=== PATIENT | female | born 1955 | race Caucasian/White ===

== ENCOUNTER → 2017-01-10 | Outpatient (CLI) | payer OTHER | LOC: FIMAGING 14:38 | PROVIDERS: ATTEND Family Medicine | DX: Z12.31 Encounter for screening mammogram for malignant neoplasm of breast (principal) | CPT/HCPCS: G0202 ==

== ENCOUNTER 2017-07-07 11:00 | Day surgery (SDC) | payer OTHER ==
[2017-07-07] MEDS ORDERED: LR 1,000 ML IV ONE (11:27)
[2017-07-07] MEDS ORDERED: PROPOFOL/EMULSION 500 MG/50 ML BOTTLE IV ONE (12:30)
[2017-07-07] MEDS ORDERED: LIDOCAINE 2% 5 ML SDV ONE (12:32)
--- NOTE | 2017-07-07 12:45 | PDGENHP ---
History & Physical Chief Complaint: colonic polyps History of Present Illness: 62 year old with 3 polyps on last colonoscopy presents for surveillance colonoscopy. Pertinent Past, Social, Family History: PMHx: HTN. SoHx: No alc, cigs Relevant Physical Exam: HEENT: anicteric. Cv: RRR +s1s2. Lungs: CTAB. Abd: soft, nt, + bs Cardiorespiratory Assessment: ASA 2
[2017-07-07] MEDS ORDERED: INDOMETHACIN 50 MG SUPP PR PRN (12:46)
--- NOTE | 2017-07-07 12:50 | PDANEPAE ---
ANE Past Medical History - Cardiovascular History Hx Hypertension: No Hx Arrhythmias: Yes Hx Chest Pain: No Hx Coronary Artery / Peripheral Vascular Disease: No Hx CHF / Valvular Disease: No Hx Palpitations: No Cardiovascular History Comment: MILD UNK ARRHYTHMIA - BENIGN - Pulmonary History Hx COPD: No Hx Asthma/Reactive Airway Disease: No Hx Recent Upper Respiratory Infection: No Hx Oxygen in Use at Home: No Hx Sleep Apnea: No Sleep Apnea Screening Result - Last Documented: Negative - Neurologic History Hx Cerebrovascular Accident: No Hx Seizures: Yes Hx Dementia: No Neurologic History Comment: EPILEPSY - SEIZURES APPROX ONCE PER MONTH DURING DEEP SLEEP. LAST SEIZURE 06/11/17 - Endocrine History Hx Diabetes: No - Renal History Hx Renal Disorders: No - Liver History Hx Hepatic Disorders: No - Neurological & Psychiatric Hx Hx Neurological and Psychiatric Disorders: Yes Neurological / Psychiatric History Comment: ANXIETY/DEPRESSION - Cancer History Hx Cancer: No - Congenital Disorder History Hx Congenital Disorders: No - GI History Hx Gastrointestinal Disorders: No - Other Health History Other Health History: NEG - Chronic Pain History Chronic Pain: No - Surgical History Prior Surgeries: COLONOSCOPIES. VAGAL NERVE STIMULATOR -PLACED AND REMOVED. BREAST LUMP L BREAST. GANGLION L FOOT ANE Review of Systems Review of systems is: negative Review of Systems: - Exercise capacity METS (RN): 4 METS ANE Patient History - Allergies Allergies/Adverse Reactions: ampicillin [Ampicillin] Allergy (Verified 06/19/12 16:27) Rash - Home Medications Home medications: home medication list seen and reviewed Home Medications: Divalproex [Depakote 250 MG (RX)] 750 mg PO BID 10/16/12 [Last Taken 07/07/17] FLUoxetine [Prozac] 40 mg PO DAILY 10/16/12 [Last Taken 07/06/17] Ibuprofen [Motrin 200 mg (OTC)] 400 - 600 mg PO DAILY PRN 10/16/12 [Last Taken 1 Week Ago ~06/30/17] LORazepam [Ativan 0.5 mg (RX)] 0.5 mg PO HS PRN 10/16/12 [Last Taken 1 Week Ago ~06/30/17] metFORMIN HCL [Glucophage 500 mg (RX)] 10/16/12 [Last Taken 07/05/17] Aspirin 81mg (*) 06/16/17 [Last Taken 1 Week Ago ~06/30/17] Herbals/Supplements -Info Only 06/16/17 [Last Taken 1 Week Ago ~06/30/17] Risperdal 06/16/17 [Last Taken 07/06/17] - NPO status NPO Since - Liquids (Date): 07/07/17 NPO Since - Liquids (Time): 07:00 NPO Since - Solids (Date): 07/06/17 NPO Since - Solids (Time): 20:00 - Smoking Hx Smoking Status: Never smoked - Family Anes Hx Family Hx Anesthesia Complications: NEG ANE Labs/Vital Signs - Vital Signs Blood Pressure: 110/67 Heart Rate: 99 Respiratory Rate: 18 O2 Sat (%): 92 Height: 157.48 cm Weight: 82.1 kg ANE Physical Exam - Airway Neck exam: FROM Mallampati Score: Class 2 Mouth exam: normal dental/mouth exam - Pulmonary Pulmonary: no respiratory distress - Cardiovascular Cardiovascular: regular rate and rhythym - ASA Status ASA Status: III ANE Anesthesia Plan Anesthesia Plan: GA with mask
[2017-07-07] MEDS ORDERED: fentaNYL 100 MCG/2 ML INJ IVP PRN (12:53)
[2017-07-07] MEDS ORDERED: ONDANSETRON 4 MG/2 ML VIAL IVP PRN (12:53)
[2017-07-07] MEDS ORDERED: ALBUTEROL 3 ML DEYVIAL IH PRN (12:53)
[2017-07-07] MEDS ORDERED: LR 500 ML IV PRN (12:53)
[2017-07-07] MEDS ORDERED: NALOXONE HCL 0.4 MG/ML INJ IVP PRN (12:53)
[2017-07-07] MEDS ORDERED: ACETAMINOPHEN 500 MG TAB PO PRN (12:53)
--- NOTE | 2017-07-07 12:54 | POSTANESTH ---
Post Anesthetic Evaluation Cardiovascular Status: Normal, Stable Respiratory Status: Normal, Stable Level of Consciousness/Mental Status: Can Participate in Eval Pain Control: Adequate, Prn Tx Ordered Nausea/Vomiting Control: Adequate, Prn Tx Ordered Complications Possibly Related to Anesthesia: None Noted
[2017-07-07] MEDS ORDERED: NS 500 ML IV SCH (13:00)
--- NOTE | 2017-07-07 13:32 | GIREPORT ---
[facility] - Endoscopy Department Patient Name: Mary Preston Procedure Date: 07/07/2017 11:18 AM Patient Type: Outpatient Attending MD/ ER Physician: Leobardo Rehman MD Procedure: Colonoscopy Indications: High risk colon cancer surveillance: Personal history of colonic polyps Patient Profile: 62 year old female with a history of polyps presents for surveillance colonoscopy. Providers: Leobardo Rehman MD Medicines: Monitored Anesthesia Care Complications: No immediate complications. Estimated blood loss: Minimal. Description of Procedure: After obtaining informed consent, the scope was passed under direct vis ion. Throughout the procedure, the patient's blood pressure, pulse, and oxyg en saturations were monitored continuously. The Colonoscope with irrigatio n channel was introduced through the anus and advanced to the cecum, identified by appendiceal orifice and ileocecal valve. The colonoscopy was performed without difficulty. The patient tolerated the procedure well. The quality of the bowel preparation was good. The ileocecal valve, appendi ceal orifice, and rectum were photographed. Findings: The perianal and digital rectal examinations were normal. Pertinent negatives include no palpable rectal lesions. A 3 mm polyp was found in the cecum. The polyp was sessile. The polyp w as removed with a cold biopsy forceps. Resection and retrieval were comple te. Estimated Blood Loss: Estimated blood loss was minimal. Post Op Diagnosis: - One 3 mm polyp in the cecum, removed with a cold biopsy forceps. Rese cted and retrieved. Recommendation: - Discharge patient to home (with escort). - Resume previous diet. - Continue present medications. - Repeat colonoscopy in 5 years for surveillance. - Await pathology results. Attending Participation: I personally performed the entire procedure. Leobardo Rehman MD Leobardo Rehman MD 07/07/2017 1:31:51 PM This report has been signed electronicallyeLobardo Rehman MD Number of Addenda: 0 Note Initiated On: 07/07/2017 11:18 AM Total Procedure Duration Time 0 hours 23 minutes 52 seconds [email or web address]
[2017-07-07 15:17] VITALS: BP 114/59
== END 2017-07-07 15:03 | disposition home or self-care (01) ==
LOC: FSGY 11:00
PROVIDERS: ATTEND Internal Medicine Gastroenterology
PROC: 0DBH8ZX Excision of Cecum, Via Natural or Artificial Opening Endoscopic, Diagnostic (ICD-10-PCS; principal; 2017-07-07 12:30)
DX: Z12.11 Encounter for screening for malignant neoplasm of colon (principal); D12.0 Benign neoplasm of cecum; G40.909 Epilepsy, unspecified, not intractable, without status epilepticus; Z79.899 Other long term (current) drug therapy
CPT/HCPCS: J2704

== ENCOUNTER → 2018-02-05 | Outpatient (CLI) | payer OTHER | LOC: FIMAGING 10:34 | PROVIDERS: ATTEND Family Medicine | DX: Z12.31 Encounter for screening mammogram for malignant neoplasm of breast (principal) ==